=== PATIENT | female | born 1945 | race Caucasian/White ===

== ENCOUNTER → 2016-07-02 | Outpatient (CLI) | payer MEDICARE, OTHER ==
[~2016-07-02] MED LIST: ALEN70TA5 PO; ASCO1TAB8 PO; CALC-72 PO; CETI10TA32 PO; CLON-364 PO; DIAZ2TAB3 PO; ESTR0.5T PO; FLAX100016 PO; FOSAMAX PO; HYDR-883 PO; KRIL500C PEG; L-THYROXINE PO; LISI-170 PO; MAGNESIUM PO; METH750T2 PO; MULT-658 PO; OMEP20CA9 PO; SPIR1TAB3 PO; VITAMIN D PO
[2016-07-02 10:36] LABS: ASPARTATE AMINO TRANSFERASE 17 U/L (15-37); BLOOD UREA NITROGEN 12 mg/dL (7-18)
== END | disposition home or self-care (01) ==
LOC: STAR 09:16
PROVIDERS: ATTEND Orthopaedic Surgery
DX: Z01.818 Encounter for other preprocedural examination (principal); M19.072 Primary osteoarthritis, left ankle and foot; M21.6X2 Other acquired deformities of left foot
CPT/HCPCS: 36415; 80053; 93005

== ENCOUNTER 2016-07-17 12:02 | Inpatient (IN) | payer MEDICARE, OTHER ==
[~2016-07-17] VITALS: Ht 154.9 cm; Wt 78.0 kg
[~2016-07-17 12:02] MED LIST changes: +ROPIvacaine/PF 0.5%, 30 ML ONE
[2016-07-17 12:33] VITALS: BP 117/80
[2016-07-17] MEDS ORDERED: LIDOCAINE 1%, 2ML ONE (12:53)
[2016-07-17] MEDS ORDERED: MIDAZOLAM 1 MG/ML, 2ML ONE (13:09)
[2016-07-17] MEDS ORDERED: FENTANYL PF 250 MCG/5ML ONE (13:10)
[2016-07-17] MEDS ORDERED: ONDANSETRON 2MG/ML, 2ML IVPush PRN (13:30)
[2016-07-17] MEDS ORDERED: ACETAMINOPHEN 325 MG TABLET PO PRN (13:30)
[2016-07-17] MEDS ORDERED: ALBUTEROL SULFATE 2.5 MG/3 ML NPPB PRN (13:30)
[2016-07-17] MEDS ORDERED: METOPROLOL 1 MG/ML, 5ML IV PRN (13:30)
[2016-07-17] MEDS ORDERED: OXYcodone 5 MG/5 ML ORAL.SOL UDC PO PRN (13:30)
[2016-07-17] MEDS ORDERED: LABETALOL 5MG/ML, 20ML IV PRN (13:30)
[2016-07-17] MEDS ORDERED: EPHEDRINE 50 MG/ML, 1ML IVPush PRN (13:30)
[2016-07-17] MEDS ORDERED: FENTANYL PF 100 MCG/2ML IV PRN (13:30)
[2016-07-17] MEDS ORDERED: hydrALAzine 20 MG/ML, 1ML IV PRN (13:30)
[2016-07-17] MEDS ORDERED: HYDROmorphone 1 MG/ML, 1ML IV PRN (13:30)
[2016-07-17] MEDS ORDERED: SCOPOLAMINE PATCH, 1.5MG PATCH.TD72 TD ONE ×2 (13:49)
[2016-07-17] MEDS ORDERED: DEXAMETHASONE 4 MG/ML, 1ML ONE (15:29)
[2016-07-17] MEDS ORDERED: NEOSTIGMINE 1 MG/ML, 10ML ONE (15:29)
[2016-07-17] MEDS ORDERED: METOCLOPRAMIDE 5 MG/ML, 2ML ONE (15:29)
[2016-07-17] MEDS ORDERED: PROPOFOL 10 MG/ML, 20ML ONE (15:29)
[2016-07-17] MEDS ORDERED: GLYCOPYRROLATE 0.2MG/1ML ONE (15:29)
[2016-07-17] MEDS ORDERED: CEFAZOLIN 1,000 MG ONE (15:29)
[2016-07-17] MEDS ORDERED: PHENYLEPHRINE 10 MG/ML ONE (15:29)
[2016-07-17] MEDS ORDERED: ROCURONIUM 10 MG/ML ONE (15:29)
[2016-07-17] MEDS ORDERED: ONDANSETRON 2MG/ML, 2ML ONE (15:29)
[2016-07-17] MEDS ORDERED: ROPIvacaine/PF 0.2%, 100ML 400 ML in BAG 1 EACH INJ ONE (16:00)
[2016-07-17] MEDS ORDERED: ACETAMINOPHEN 650 MG/20.3 ML UDC ONE (19:25)
[2016-07-17] MEDS ORDERED: OXYcodone 5 MG/5 ML ORAL.SOL UDC ONE (19:26)
[2016-07-17] MEDS ORDERED: morphine SULFATE 10 MG/ML, 1ML IV PRN (20:30)
[2016-07-17] MEDS ORDERED: DIPHENHYDRAMINE 25 MG CAPSULE PO PRN (20:30)
[2016-07-17] MEDS ORDERED: ONDANSETRON 2MG/ML, 2ML IV PRN (20:30)
[2016-07-17] MEDS ORDERED: DIAZEPAM 2 MG TABLET PO PRN (20:30)
[2016-07-17] MEDS: SODIUM CHLORIDE 0.9% 1,000 ML IV SCH (20:42)
[2016-07-17] MEDS: CEFAZOLIN PMX 1GM/50ML 50 ML IVPB SCH (20:42)
[2016-07-17] MEDS: KETOROLAC 30 MG/1 ML IV SCH (20:43)
[2016-07-17] MEDS: SODIUM CHLORIDE FLUSH 10ML SYR IVF SCH (20:55)
[2016-07-17] MEDS: DOCUSATE 100 MG CAPSULE PO SCH (20:57)
[2016-07-17 21:32] VITALS: BP 99/68
[2016-07-18 00:02] VITALS: BP 91/64
[2016-07-18] MEDS: SODIUM CHLORIDE 0.9% 1,000 ML IV SCH ×2 (04:31→16:30)
[2016-07-18] MEDS: CEFAZOLIN PMX 1GM/50ML 50 ML IVPB SCH (04:31)
[2016-07-18] MEDS: KETOROLAC 30 MG/1 ML IV SCH ×2 (04:31→13:10)
[2016-07-18 04:39] VITALS: BP 93/60
[2016-07-18] MEDS: LEVOTHYROXINE 50 MCG TABLET PO SCH (05:53)
[2016-07-18] MEDS ORDERED: ALENDRONATE 70 MG TABLET PO SCH (06:30)
[2016-07-18 08:50] VITALS: BP 86/54
[2016-07-18] MEDS: OMEPRAZOLE 20 MG CAPSULE.DR PO SCH (08:56)
[2016-07-18] MEDS: CALCIUM/VITAMIN D3 250-125 TABLET PO SCH (08:57)
[2016-07-18] MEDS: ASCORBIC ACID 500 MG TABLET PO SCH (08:57)
[2016-07-18] MEDS: DOCUSATE 100 MG CAPSULE PO SCH ×2 (08:58→22:44)
[2016-07-18] MEDS: CETIRIZINE 10 MG TABLET PO SCH (08:59)
[2016-07-18] MEDS: LISINOPRIL 20 MG TABLET PO SCH (09:00)
[2016-07-18] MEDS: SPIRONOLACTONE 25 MG TABLET PO SCH (09:00)
[2016-07-18] MEDS: HYDROCHLOROTHIAZIDE 25 MG TABLET PO SCH (09:00)
[2016-07-18] MEDS: MAGNESIUM OXIDE 400 MG TABLET PO SCH (09:00)
[2016-07-18] MEDS: SODIUM CHLORIDE FLUSH 10ML SYR IVF SCH (09:03)
[2016-07-18 12:30] VITALS: BP 95/61
[2016-07-18] MEDS: OXYcodone/APAP 5/325MG TABLET PO PRN ×2 (18:33→22:44)
[2016-07-18 19:45] VITALS: BP 88/58
[2016-07-18] MEDS ORDERED: DIAZEPAM 2 MG TABLET PO PRN (22:30)
[2016-07-18] MEDS ORDERED: DIPHENHYDRAMINE 25 MG CAPSULE PO PRN (22:30)
[2016-07-19 01:14] VITALS: BP 87/57
[2016-07-19] MEDS: SODIUM CHLORIDE 0.9% 1,000 ML IV SCH ×2 (02:30→09:10)
[2016-07-19] MEDS: OXYcodone/APAP 5/325MG TABLET PO PRN ×3 (04:40→14:10)
[2016-07-19] MEDS: LEVOTHYROXINE 50 MCG TABLET PO SCH (06:08)
[2016-07-19] MEDS: SODIUM CHLORIDE FLUSH 10ML SYR IVF SCH ×2 (06:09→09:16)
[2016-07-19 08:34] VITALS: BP 93/63
[2016-07-19] MEDS: HYDROCHLOROTHIAZIDE 25 MG TABLET PO SCH (09:10)
[2016-07-19] MEDS: SPIRONOLACTONE 25 MG TABLET PO SCH (09:10)
[2016-07-19] MEDS: LISINOPRIL 20 MG TABLET PO SCH (09:10)
[2016-07-19] MEDS: CALCIUM/VITAMIN D3 250-125 TABLET PO SCH (09:13)
[2016-07-19] MEDS: ASCORBIC ACID 500 MG TABLET PO SCH (09:13)
[2016-07-19] MEDS: MAGNESIUM OXIDE 400 MG TABLET PO SCH (09:13)
[2016-07-19] MEDS: DOCUSATE 100 MG CAPSULE PO SCH (09:13)
[2016-07-19] MEDS: OMEPRAZOLE 20 MG CAPSULE.DR PO SCH (09:14)
[2016-07-19] MEDS: CETIRIZINE 10 MG TABLET PO SCH (09:14)
[2016-07-19 12:49] VITALS: BP 92/60
[2016-07-19 14:23] VITALS: BP 110/71
[2016-07-20] MEDS ORDERED: ESTRADIOL 0.5 MG TABLET PO SCH (09:00)
== END 2016-07-19 14:45 | disposition home or self-care (01) | DRG 470 ==
LOC: ORIP 12:02 → 4NOR 20:00
PROVIDERS: ADMIT Orthopaedic Surgery; ATTEND Orthopaedic Surgery
PROC: 0LSP0ZZ Reposition Left Lower Leg Tendon, Open Approach (ICD-10-PCS; 2016-07-17)
PROC: 0SRG0JZ Replacement of Left Ankle Joint with Synthetic Substitute, Open Approach (ICD-10-PCS; principal; 2016-07-17 14:30)
DX: M19.072 Primary osteoarthritis, left ankle and foot (principal); E03.9 Hypothyroidism, unspecified; I10 Essential (primary) hypertension; K21.9 Gastro-esophageal reflux disease without esophagitis; Z88.2 Allergy status to sulfonamides; Z79.899 Other long term (current) drug therapy; Z82.61 Family history of arthritis; Z82.49 Family history of ischemic heart disease and other diseases of the circulatory system
CPT/HCPCS: 76001; J0690; J1100; J1885; J2250; J2405; J2704; J2710; J2795; J3010; J3490; J2370; J2765; J7030